=== PATIENT | female | born 1995 | race Caucasian/White ===

== ENCOUNTER 2020-05-12 05:46 | Inpatient (IN) ==
[2020-05-12] MEDS ORDERED: ONDANSETRON 4 MG/2 ML VIAL IV PRN ×2 (06:19→16:53)
[2020-05-12] MEDS ORDERED: MEPERIDINE 50 MG/1 ML VIAL IV PRN (06:19)
[2020-05-12] MEDS ORDERED: OXYTOCIN/LR 20 UNIT/1,000 ML BAG IV SCH (06:30)
[2020-05-12] MEDS ORDERED: LACTATED RINGERS 1,000 ML IV SCH ×2 (06:30→11:00)
[2020-05-12 07:04] LABS: Basophils # 0.1 10*3/uL (0.0-0.2); Basophils % 0.4 % (0.0-0.8); Eosinophils # 0.1 10*3/uL (0.0-0.87); Eosinophils % 0.4 % (0.00-10.9); Hematocrit 31.9 VOL% (35.7-47.0); Hemoglobin 10.7 GM/DL (12.0-16.0); Immature Granulocytes % 1.2 %; Immature Granulocytes Absolute 0.15 #; Lymphocytes # 1.9 10*3/uL (1.4-4.0); Lymphocytes % 15.6 % (21.3-54.2); Mean Corpuscular HGB Conc 33.5 GM/DL (32-36); Mean Corpuscular Volume 94.4 FL (87-102); Neutrophils % 74.4 % (38.7-73.9); Platelet Count 277 T/CUMM (130-400); Red Blood Count 3.38 MC/CUMM (3.8-5.5); Red Cell Distribution Width 12.8 % (9.3-17.3); White Blood Count 12.3 T/CUMM (4-12)
[2020-05-12 07:29] LABS: Albumin 2.9 G/DL (3.4-5.0); Bilirubin,Total 0.5 MG/DL (0.2-1.0); Calcium 8.9 MG/DL (8.5-10.1); Osmolality,Calculated 269.8 MOS/KG (273-304)
[2020-05-12] MEDS ORDERED: LACTATED RINGERS 1,000 ML IV ONE (10:48)
[2020-05-12] MEDS ORDERED: PROMETHAZINE 25 MG/1 ML VIAL IM ONE (10:48)
[2020-05-12] MEDS ORDERED: hydrOXYzine HCL 25 MG/1 ML VIAL IM PRN (10:48)
[2020-05-12] MEDS ORDERED: diphenhydrAMINE 50 MG/1 ML VIAL IV PRN ×2 (10:48)
[2020-05-12] MEDS ORDERED: NALOXONE 0.4 MG/ML VIAL IV PRN (10:48)
[2020-05-12] MEDS ORDERED: ePHEDrine 50 MG/ML VIAL IV PRN (10:48)
[2020-05-12] MEDS ORDERED: FAMOTIDINE 20 MG/2 ML VIAL IV ONE (10:49)
[2020-05-12] MEDS ORDERED: CITRIC ACID/SODIUM CITRATE 30 ML UDCUP PO ONE (10:49)
[2020-05-12] MEDS: fentaNYL 2 MCG/ROPIV 0.2% EPID 100 ML EPIDURAL SCH ×2 (12:00→18:26)
[2020-05-12 13:28] LABS: Bilirubin,Urine Negative (Negative); Blood, Urine Negative (Negative); Glucose,Urine (UA) Negative (Negative); Ketones,Urine 80 mg/dL (Negative); Mucus,Urine Occasional /LPF (Occasional); Nitrite,Urine Negative (Negative); Protein,Urine Negative; RBC,Urine <1 /HPF (0-4); Squamous Epithelial Cell,Urine Occasional /HPF (0-10); Urine Appearance CLEAR (Clear); Urine Color Yellow (Yellow); Urine Urobilinogen < 2.0 EU/DL (0.2-1.0); WBC,Urine <1 /HPF (0-6)
[2020-05-12] MEDS ORDERED: TRANEXAMIC ACID 1,000 MG/10 ML VIAL ONE (14:54)
[2020-05-12] MEDS ORDERED: miSOPROStoL 200 MCG TABLET ONE (14:54)
[2020-05-12] MEDS ORDERED: OXYTOCIN/LR 20 UNIT/1,000 ML BAG IV ONE ×2 (14:54→16:53)
[2020-05-12] MEDS ORDERED: CARBOPROST TROMETHAMINE 250 MCG/ML AMP IM ONE (14:55)
[2020-05-12] MEDS ORDERED: METHYLERGONOVINE 0.2 MG/1 ML AMP ONE (14:55)
[2020-05-12 16:32] LABS: Cord Venous Blood HCO3 20.4 MMOL/L; Cord Venous Blood PO2 33.5 MMHG
[2020-05-12] MEDS ORDERED: HYDROCORTISONE 2.5% RECTAL CREAM 30 GM TUBE TOP PRN (16:53)
[2020-05-12] MEDS ORDERED: WITCH HAZEL PADS 100/JAR TOP PRN (16:53)
[2020-05-12] MEDS ORDERED: DIPH/TET/ACEL PERT BOOSTER VACCINE 0.5 ML VIAL IM ONE (16:53)
[2020-05-12] MEDS ORDERED: LANOLIN 50% CREAM 0.3 OZ TUBE TOP PRN (16:53)
[2020-05-12] MEDS ORDERED: ACETAMINOPHEN 325 MG TABLET PO PRN (16:53)
[2020-05-12] MEDS ORDERED: MEASLES/MUMPS/RUBELLA VACCINE 0.5 ML VIAL SUBCUT ONE (16:53)
[2020-05-12] MEDS ORDERED: BISACODYL 10 MG SUPP RECTAL PRN (16:53)
[2020-05-12] MEDS ORDERED: RHO(D) IMMUNE GLOBULIN 300 MCG SYRINGE IM ONE (16:53)
[2020-05-12] MEDS ORDERED: oxyCODONE/ACETAMINOPHEN 5-325 MG TABLET PO PRN (16:53)
[2020-05-12] MEDS: BENZOCAINE 20%/MENTHOL 0.5% SPRAY 56 GM CAN TOP PRN (20:18)
[2020-05-12] MEDS: DOCUSATE SODIUM 100 MG CAPSULE PO SCH (20:18)
[2020-05-13] MEDS: IBUPROFEN 800 MG TABLET PO PRN ×2 (02:19→23:29)
[2020-05-13 06:07] LABS: Basophils % 0.1 % (0.0-0.8); Eosinophils % 0.2 % (0.00-10.9); Hematocrit 26.6 VOL% (35.7-47.0); Immature Granulocytes % 0.9 %; Immature Granulocytes Absolute 0.12 #; Mean Corpuscular Volume 100.4 FL (87-102); Monocytes % 9.3 % (1.7-12.7); Neutrophils % 74.5 % (38.7-73.9); Red Cell Distribution Width 12.7 % (9.3-17.3); White Blood Count 13.4 T/CUMM (4-12)
[2020-05-13 06:32] LABS: Red Blood Count 2.65 MC/CUMM (3.8-5.5)
[2020-05-13 06:33] LABS: Hemoglobin 8.5 GM/DL (12.0-16.0); Platelet Count 196 T/CUMM (130-400)
[2020-05-13] MEDS: DOCUSATE SODIUM 100 MG CAPSULE PO SCH ×2 (08:35→21:30)
[2020-05-13] MEDS: BENZOCAINE 20%/MENTHOL 0.5% SPRAY 56 GM CAN TOP PRN (08:38)
[2020-05-13] MEDS: oxyCODONE/ACETAMINOPHEN 5-325 MG TABLET PO PRN ×2 (13:36→23:29)
[2020-05-13] MEDS: FERROUS SULFATE 325 MG TABLET PO SCH (21:30)
[2020-05-14 08:33] VITALS: BP 111/74
[2020-05-14] MEDS: DOCUSATE SODIUM 100 MG CAPSULE PO SCH (08:43)
[2020-05-14] MEDS: FERROUS SULFATE 325 MG TABLET PO SCH (08:43)
== END 2020-05-14 12:15 | disposition home or self-care (01) | DRG 807 ==
LOC: N.LD 05:46 → N.OB 20:00
PROVIDERS: ADMIT Obstetrics & Gynecology; ATTEND Obstetrics & Gynecology